=== PATIENT | female | born 1945 | race Caucasian/White ===

== ENCOUNTER 2017-05-24 16:36 | Emergency (ER) | payer OTHER ==
[2017-05-24 16:46] VITALS: BP 211/93; PULSE 83; RESP 15; TEMP 98.6; O2SAT 95
[2017-05-24] MEDS ORDERED: LISI-515 PO (16:56)
[2017-05-24] MEDS ORDERED: LOVA20TA PO (16:56)
--- NOTE | 2017-05-24 17:04 | PD ---
HPI Chief Complaint: Injury Time Seen by Provider: 16:49 Travel History International Travel<30 days: No Contact w/Intl Traveler<30days: No Traveled to known affect area: No History of Present Illness HPI 71-year-old female presents to the emergency room for evaluation of right ankle pain and swelling after injury just prior to arrival. Patient stepped off a curb and accidentally everted her right ankle. She heard a loud pop and then fell forward landing on bilateral hands. Denies pain in her wrist or hand. States pain in her ankle was immediate and extremely sharp. Worse with any range of motion. She has not been able to bear weight. She has associated pain in the lateral foot and paresthesias in the right great toe. Patient has not taken anything for her symptoms. States she broke her left ankle 4 years ago and this pain feels worse in the pain didn't. She had follow-up for her left ankle fracture with the [facility]. PFS Social History Tobacco Use: No Allergies-Medications (Allergen,Severity, Reaction): Coded Allergies: Penicillins (Verified Allergy, Unknown, UNKNOWN, 05/24/17) ALLERGIC TO MOLD SO SHE DOES NOT TAKE. HAS NEVER TAKEN. mold (Verified Allergy, Unknown, WHEEZING, 05/24/17) Reported Meds & Prescriptions Reported Meds & Active Scripts Active Reported Lovastatin 20 Mg Tab 20 Mg PO DAILY Lisinopril 20 Mg Tab 20 Mg PO DAILY Review of Systems Except as stated in HPI: all other systems reviewed are Neg Physical Exam Narrative GENERAL: Well-nourished, well-developed female in no acute distress. Afebrile. SKIN: Focused skin assessment warm/dry. No erythema or ecchymosis noted. HEAD: Normocephalic. EYES: No scleral icterus. No injection or drainage. NECK: Supple, trachea midline. No JVD or lymphadenopathy. CARDIOVASCULAR: Regular rate and rhythm without murmurs, gallops, or rubs. RESPIRATORY: Breath sounds equal bilaterally. No accessory muscle use. MUSCULOSKELETAL: No cyanosis. Moderate edema localized to the right lateral malleolus. Extreme tenderness to palpation of the right lateral malleolus and fifth metatarsal. Full range of motion of the foot. Limited range of motion of the ankle secondary to pain. Negative squeeze test. 2+ dorsalis pedis pulse. Data Data Last Documented VS Vital Signs Date Time Temp Pulse Resp B/P (MAP) Pulse Ox O2 Delivery O2 Flow Rate FiO2 05/24/17 17:31 78 16 182/87 (118) 95 05/24/17 16:46 98.6 Orders Orders Ankle, Complete ([id number]) (05/24/17 ) Foot, Limited (2vws) (05/24/17 ) Splint Or Brace Apply/Monitor (05/24/17 17:35) MDM Medical Decision Making Medical Screen Exam Complete: Yes Emergency Medical Condition: Yes Medical Record Reviewed: Yes Differential Diagnosis Sprain, fracture, strain Narrative Course 61-year-old female presents to the emergency room for evaluation of critical pain and swelling after eversion injury just prior to arrival. Patient fell off a 3 [address] curb[address] Denies any other injuries. He reports associated paresthesias in the right great toe. Right lower extremity is neurovascularly intact with less than 2 second capillary refill distally and 2+ dorsalis pedis pulse. There is extreme tenderness palpation over the lateral malleolus and the fifth metatarsal. X-rays of the foot shows a nondisplaced fifth metatarsal fracture. X-ray of the ankle shows a nondisplaced distal fibular fracture. Patient placed in [facility] and discharged with crutches. She declined pain medication. Told to follow up with her orthopedist or return for worsening symptoms. She understands and agrees to plan. Diagnosis Primary Impression: Fracture of distal end of fibula Qualified Codes: S82.831A - Other fracture of upper and lower end of right fibula, initial encounter for closed fracture Additional Impression: Fracture of fifth metatarsal bone Qualified Codes: S92.354A - Nondisplaced fracture of fifth metatarsal bone, right foot, initial encounter for closed fracture Referrals: Primary Care Physician Additional Instructions: Rest and drink plenty of fluids. Use splint and crutches until follow-up. Take ibuprofen with food as directed, as needed for pain. Apply ice to the affected area for 20 minutes at a time, as needed for pain and swelling. Follow-up with an orthopedist this week. Return to the emergency room for worsening symptoms. Disposition: 01 DISCHARGE HOME Condition: Stable Nani Hodge May 24, 2017 17:04
--- NOTE | 2017-05-24 17:25 | RADRPT ---
EXAM DATE/TIME: 05/24/2017 17:10 [facility] COMPARISON: No previous studies available for comparison. INDICATIONS : Right ankle pain. Patient states she rolled her ankle. MEDICAL HISTORY : None. SURGICAL HISTORY : None. ENCOUNTER: Initial ACUITY: 1 day PAIN SCORE: 5/10 LOCATION: Right ankle. FINDINGS: There is soft tissue swelling at the lateral aspect of the ankle and a nondisplaced transverse fractu re through the distal fibula lateral malleolus region. No other fractures are seen. CONCLUSION: Distal fibular fracture and soft tissue swelling. Mckay Gaming MD on May 24, 2017 at 17:24 Board Certified Radiologist. This report was verified electronically.
--- NOTE | 2017-05-24 17:30 | RADRPT ---
EXAM DATE/TIME: 05/24/2017 17:11 [facility] COMPARISON: No previous studies available for comparison. INDICATIONS : Right foot pain. Patient states she rolled her ankle. MEDICAL HISTORY : None. SURGICAL HISTORY : Right foot bunion surgery. ENCOUNTER: Initial ACUITY: 1 day PAIN SCORE: 8/10 LOCATION: Right foot. FINDINGS: Previous bunion surgery first metatarsal with 2 screws identified. 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 There is a transverse nondisplaced fracture through the base of the fifth metatar andriy. CONCLUSION: Fifth metatarsal fracture, acute. Remote postsurgical changes and mild degenerative changes of the first metatarsal. Mckay Gaming MD on May 24, 2017 at 17:28 Board Certified Radiologist. This report was verified electronically.
[2017-05-24 17:31] VITALS: BP 182/87; PULSE 78; RESP 16; O2SAT 95
== END 2017-05-24 18:08 | disposition home or self-care (01) ==
LOC: PHEFT 16:36
DX: S82.831A Other fracture of upper and lower end of right fibula, initial encounter for closed fracture (principal); S92.354A Nondisplaced fracture of fifth metatarsal bone, right foot, initial encounter for closed fracture; W19.XXXA Unspecified fall, initial encounter
CPT/HCPCS: 29515; 73610; 73620; 99283; E0113